=== PATIENT | female | born 2000 | race Asian ===

== ENCOUNTER 2020-12-13 15:05 | Emergency (ER) | payer OTHER ==
[2020-12-13 15:17] VITALS: BP 118/67
--- NOTE | 2020-12-13 15:40 | ED Physician Documentation ---
History of Present Illness - Stated complaint Stated Complaint: DIZZY - Chief complaint Chief Complaint: Heent - Additonal information Additional information: This is a very well-appearing 20-year-old female who presents to the emergency department for evaluation of vertigo for the last week. She reports that when she turns her head, wakes up in the morning or stands too suddenly she begins to have a spinning sensation and feel off balance. The symptoms typically last for a few seconds up to a few minutes. Some nausea no vomiting. No chest pain no shortness of air. She took a test yesterday and was negative. No history of similar. No falls or trauma. Denies headache diplopia slurred speech. Has had no refill sent cough cold congestion. No tinnitus ear pain or blurry vision. Review of Systems Constitutional: reports: Reviewed and negative Eyes: denies: Loss of vision, Decreased vision, Photophobia Ears: denies: Loss of hearing, Ear pain, Tinnitus/ringing Nose: reports: Reviewed and negative Throat: reports: Reviewed and negative Cardiac: reports: Reviewed and negative Respiratory: reports: Reviewed and negative GI: reports: Reviewed and negative : reports: Reviewed and negative Skin: reports: Reviewed and negative Musculoskeletal: reports: Reviewed and negative Neurologic: reports: Other (Positional dizziness) Psychiatric: reports: Reviewed and negative Endocrine: reports: Reviewed and negative PD PAST MEDICAL HISTORY - Present Medications Home Medications: Ambulatory Orders Medication Instructions Recorded Confirmed Meclizine [Antivert] 25 mg PO Q6H PRN #30 tablet 12/13/20 - Allergies Allergies/Adverse Reactions: Allergies Allergy/AdvReac Type Severity Reaction Status Date / Time No Known Drug Allergies Allergy Verified 12/13/20 15:16 PD ED PE EXPANDED - General General: Alert, No acute distress, Well developed/nourished - HEENT HEENT: Atraumatic, PERRL, EOMI, Ears normal, Moist mucous membranes - Neck Neck: Supple w/out meningeal sx. No: Adenopathy - Cardiac Cardiac: Regular Rate, Radial strong equal, Pedal strong equal, Cap refill < 2 sec - Respiratory Respiratory: Clear to ausultation alba. No: Distress, Labored - Abdomen Abdomen: Normal Bowel sounds. No: Tender to palpation - Derm Derm: Normal color. No: Warm and dry, Pale - Extremities Extremities: Normal. No: Deformity, Tenderness - Neuro Neuro: Alert and Oriented X 3, CNII-XII intact, Cerebellar nl, Normal gait, Normal finger nose, Normal speech, Other (Positive Delvin exam most prominent on the left side). No: Nystagmus Results - Vitals Vitals: Vital Signs - 24 hr 12/13/20 15:10 Temperature 36.5 C Heart Rate 75 Respiratory 15 Rate Blood Pressure 118/67 O2 Saturation 99 Oxygen O2 Source Room air PD MEDICAL DECISION MAKING - ED course Complexity details: reviewed results, re-evaluated patient, d/w patient ED course: 20-year-old female presents emergency department for evaluation of vertigo for the last week. It has been intermittent and often associated with changing positions or turning her head. Her [place] exam is positive on the left side. History and exam is entirely consistent with peripheral etiology. I discussed with patient routine management of this can include the Delvin maneuver as needed meclizine. Patient is advised close follow-up with her primary care provider for reevaluation of symptoms. If persistent or not improving may benefit from vestibular evaluation, physical therapy, or neurology. No imaging is indicated today. Departure - Departure Disposition: 01 Home, Self Care Clinical Impression: Benign paroxysmal positional vertigo of left ear Condition: Stable Record reviewed to determine appropriate education?: Yes Instructions: Vertigo Paroxysmal Positional Prescriptions: Meclizine [Antivert] 25 mg PO Q6H PRN #30 tablet PRN Reason: Vertigo Comments: Rajani you were seen today for dizziness. As we discussed your exam is consistent with vertigo coming from your left ear. Please practice the repositioning maneuvers as showed at home 2-3 times a day or especially when you get the dizziness. I have prescribed meclizine which is a motion sickness tablet but some people find relief with. Please discuss this ED visit with your primary care provider. If your vertigo is persistent and you are unable to make it better with repositioning techniques referral for vestibular rehabilitation may be indicated. Return to the emergency department for fevers, suddenly severe headache, slurred speech, droopy face or any other emergent worrisome concerns.
== END 2020-12-13 15:54 | disposition home or self-care (01) ==
LOC: ED 15:05
DX: H81.12 Benign paroxysmal vertigo, left ear (principal)
CPT/HCPCS: 99282; 99284